=== PATIENT | male | born 1960 | race Hispanic/Latino ===

== ENCOUNTER 2017-07-27 10:17 | Emergency (ER) | payer OTHER ==
--- NOTE | 2017-07-27 11:04 | RAD ---
RIGHT SHOULDER 3 VIEWS: Date: 07/27/17 HISTORY: Right shoulder pain, work injury. FINDINGS/IMPRESSION: There are degenerative changes in the acromioclavicular joint. No fracture, dislocation, or bony dest ruction is seen. POS: [facility]
== END 2017-07-27 11:56 | disposition home or self-care (01) ==
LOC: ERS 10:17
DX: S49.91XA Unspecified injury of right shoulder and upper arm, initial encounter (principal); Y99.0 Civilian activity done for income or pay

== ENCOUNTER 2017-09-06 14:56 | Outpatient (CLI) | payer OTHER ==
--- NOTE | 2017-09-06 16:34 | MRI ---
RIGHT SHOULDER MRI WITHOUT IV CONTRAST: History: 57-year-old male with history of strain of right shoulder, pain following a work injury, limited rang e of motion. Technique: Multiplanar, multisequence MRI examination of the right shoulder is performed. 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 Complete full thickness retractive tea r of the supraspinatus tendon retracted back to near the level of the humeral dome. There is a high g rade partial thickness tear of the infraspinatus tendon with some partial thickness undersurface retr action. There is full thickness tear of the superior portion of the subscapularis tendon with retract ion of several centimeters of the more superior fibers. There is an interstitial longitudinal tear of the biceps tendon in the bicipital groove and extending into the intraarticular region. The coracocl avicular ligament is poorly defined and is probably torn. There is an interstitial and delaminating t ear of the inferior portion of the subscapularis tendon. There is evidence of a SLAP tear with both a nterior and posterior extension. Rotator cuff muscles show mild muscle volume loss of the supraspinat us muscle. There is some extensive fluid extension caudally from the anterior aspect of the bicipital groove and from the anterior subdeltoid bursal region. IMPRESSION: Extensive rotator cuff tears including the supraspinatus tendon and subscapularis tendon and biceps t endon with less marked changes of the infraspinatus tendon. Evidence for SLAP tear. AC joint degenera tive changes. Caudal extending anterior fluid probably from the subscapularis superior tendon tear. POS: [facility]
== END 2017-09-06 14:57 | disposition home or self-care (01) ==
LOC: SCSMRI 14:56
PROVIDERS: ATTEND Family Medicine
DX: S46.911D Strain of unspecified muscle, fascia and tendon at shoulder and upper arm level, right arm, subsequent encounter (principal); M75.101 Unspecified rotator cuff tear or rupture of right shoulder, not specified as traumatic